=== PATIENT | female | born 1955 | race Caucasian/White ===

== ENCOUNTER 2019-11-30 10:06 | Emergency (ER) | payer MEDICARE, MEDICAID, SELFPAY ==
[2019-11-30 10:07] VITALS: BP 135/87; PULSE 76; RESP 20; TEMP 36.8; O2SAT 96; BMI 42.9
--- NOTE | 2019-11-30 10:16 | ED_ITS ---
Entered by Rajesh Donnelly LPN, acting as scribe for Alok Brown MD HPI - General Adult General: Chief complaint: General Medical Stated complaint: HEADACHE Time Seen by Provider: 11/30/19 10:16 Source: patient Mode of arrival: EMS Limitations: no limitations History of Present Illness: HPI narrative: 63 yo female presents c/o headache that started gradually 4 days ago, intermittent, initially thought it was her neck, going up the back of her head, now her left ear is hurting and she has pain behind her eyes. Most of the pain is present on the left side of the head. Certain movements worsen the pain. She has had headaches on this side before, this is worse than her normal headache today. She denies any abnormal movements. Denies syncope. Pt is not on anticoagulant. She denies h/o stroke or brain injury. She also mentions for the past 2 months she has been ill for several days at a time intermittently, described as nauseated, unable to vomit. She hasn't been eating much to be able to vomit. For the past 5 days she has had intermittent chills and sweats, hasn't noted this to be associated with her headache. Also reporting some dizziness, described as the room spinning, chronic for her. complaint: headache Onset (ago): day(s) (onset 4 days ago. ) Location: head and left Severity: moderate Pain Consistency: intermittent Exacerbating factors: movement Associated symptoms: Reports diaphoresis, headache(s) and nausea; Deny chest pain, confusion, dyspnea, rash or vomiting Review of Systems Const: Reports: chills, fatigue and diaphoresis; Denies: fever or night sweats Eyes: Denies: change in vision or blurry vision ENMT: Denies: throat pain Card: Denies: chest pain Resp: Denies: shortness of breath or productive cough GI: Reports: nausea; Denies: abdominal pain, vomiting, constipation or change in bowel habits : Denies: painful urination Musc: Reports: neck pain; Denies: extremity pain or joint pain Skin/Breast: Denies: rash Neuro: Reports: headache and dizziness; Denies: difficulty walking or confusion Psych: Denies: suicidal ideation or homicidal ideation PFSH ED PFSH: Statuses (acute, chronic, etc) shown below reflect problem list status as previously entered and may not be historically accurate Social History Smoking and tobacco status: never smoked Physical Exam Const: COMMON NORMALS: no apparent distress, oriented x3, no limitations and alert EXAM LIMITATIONS: no altered mental status GENERAL APPEARANCE: cooperative, comfortable and well developed; not in distress, not anxious and not lethargic ORIENTATION/CONSCIOUSNESS: Yes awake, Yes oriented to person, Yes oriented to place and Yes oriented to time; not lethargic HENMT: COMMON NORMALS: normocephalic, head/scalp atraumatic, external ears normal, TM's normal bilaterally and external nose normal HEAD & SCALP: normocephalic and atraumatic FACE & SINUS: normal facial exam NOSE: external nose normal EXTERNAL EAR: Yes external ears normal TYMPANIC MEMBRANE: TM's normal bilaterally Eye: COMMON NORMALS: PERRL, EOMs intact bilaterally, conjunctivae normal and no scleral icterus CONJUNCTIVA: Yes conjunctivae normal PUPIL: Yes PERRL Neck/C-Spine: COMMON NORMALS: full ROM and no meningeal signs GENERAL: Yes normal visual inspection Chest: COMMONS NORMALS: inspection of chest normal and palpation of chest normal Resp: COMMON NORMALS: normal respiratory effort, no retractions, no use of accessory muscles and clear to auscultation bilaterally EFFORT & INSPECTION: Yes able to speak in complete sentences AUSCULTATION: clear to auscultation bilaterally Cardio: COMMON NORMALS: regular rate, regular rhythm, no murmurs and peripheral pulses 2+ throughout RATE: regular rate RHYTHM: regular rhythm PERIPHERAL PULSES: pulses 2+ throughout, radial pulses present and posterior tibial pulses present GI: COMMON NORMALS: normal to inspection, nondistended, normoactive bowel sounds, soft to palpation, non-tender, no hepatosplenomegaly, no masses and no bruits PALPATION: Yes soft and Yes no hepatosplenomegaly Back/Pelvis: OTHER: palpable pain along SCM and Trapezius- no rash at this area Extremity: COMMON NORMALS: normal to inspection, full ROM, normal capillary refill, no joint enlargement and no clubbing, cyanosis or edema Neuro: COMMON NORMALS: oriented x3, CN's II-XII intact bilaterally, moves all extremities, no focal motor deficits and no sensory deficits noted SENSORIUM/ORIENTATION: Yes alert, Yes oriented to person, Yes oriented to place, Yes oriented to time and No lethargic MENINGEAL SIGNS: Yes no meningeal signs SPEECH: speech normal MOTOR EXAM: no movement abnormalities noted Psych: COMMON NORMALS: mental status grossly normal, thought process normal, cooperative, affect normal, speech normal and activity/motor behavior normal SPEECH: Yes normal speech THOUGHT PROCESS: normal thought process Skin: COMMON NORMALS: no rashes or lesions noted and skin turgor normal GENERAL SKIN EXAM: no rashes or lesions noted, elasticity normal and turgor normal Procedures Nerve Block Nerve Block 1: Local Anesthetic: lidocaine 1% Amount of anesthesia used (mL): 4 Side: left and right Nerve Blocks: occipital Procedure Successful: Yes Patient Tolerated Procedure: well Complications: none Course ED course: 102 Counseled pt she has muscle spasm and tightness in the trapezius, tender to palpation during exam, this is likely causing her headache. Explained as her other symptoms have been chronic for months I advise she discuss them with her PCP, including the chronic nausea, dizziness, she is likely experiencing Vertigo, and being fatigued, not getting out of bed much for a couple months. Counseled per my exam I don't feel she needs CT at this time, no neuro deficits noted. Discussed treatment with muscle relaxer and antiinflamatory IM, Occipital nerve block, pt agrees to use all of thAgree with above from scribe. Patient has 4 days of headache. It is not sudden onset it is not the worst headache of her life, he is gradual onset waxing and waning. Pain is easily palpable and reproducible by palpating the occipital nerve distribution and trapezius. Likely muscle spasms from laying in bed have triggered some neuralgias and migraine as well. Do not have high suspicion for serious etiology of headache.. Will attempt to relax migraine with anti- inflammatory and a dopaminergic. Will do a occipital nerve block as well. We will also give her a small dose of muscle relaxers Reevaluation(s): Reevaluation #1: Patient symptoms have largely resolved. She does feel some tenderness in the back of her head where the lidocaine was injected. Reexamined patient she has no abnormal exam in regards to nystagmus and saccedes. Patient is neurologically intact pain in her neck head and shoulder is easily reproducible. She does have some mild vertigo but again this is chronic for her and I am satisfied based upon history and exam that this is peripheral rather than central. Patient symptoms seem to be of benign etiology. I did discuss with her that the 2 months of nausea that is intermittent with her needs to be evaluated but this can be done with her primary care physician so strongly suggested that she follow-up with them soon as possible. We will discharge her with some meclizine and Zofran. 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
[2019-11-30] MEDS: diphenhydrAMINE 25 mg Capsule PO (10:52)
[2019-11-30] MEDS: lidocaine 1% INJ 20 mL INJECTION (10:52)
[2019-11-30] MEDS: promethazine 25 mg/mL SDV 1 mL IM (10:52)
[2019-11-30] MEDS: ketorolac 30 mg/mL INJ 10 MG IVP (10:53)
[2019-11-30] MEDS: meclizine 25 mg tablet PO (10:57)
[2019-11-30 11:00] VITALS: BP 135/81; PULSE 67; O2SAT 97
[2019-11-30] MEDS: orphenadrine 30 mg/mL Inj 2 mL 60 MG IM (11:42)
--- NOTE | 2019-11-30 12:07 | PC.NURSE ---
Ok sandoval called for patient per her request, reference number [id number].
[2019-11-30 12:08] VITALS: BP 142/78; PULSE 68; RESP 17; O2SAT 100
== END 2019-11-30 12:10 | disposition home or self-care (01) ==
PROVIDERS: Emergency Provider Family Medicine; Family Provider Internal Medicine; PCP Internal Medicine
DX: R51 Headache (principal)
CPT/HCPCS: 64450; 96372; 96374; 99281; J1885; J2001; J2360; J2550; J8597

== ENCOUNTER → 2019-12-11 09:51 | Outpatient (BNVA) | payer MEDICARE, MEDICAID, SELFPAY | PROVIDERS: Family Provider Internal Medicine; PCP Internal Medicine; Referring Provider Internal Medicine; Visit Provider Internal Medicine Rheumatology | DX: M05.79 Rheumatoid arthritis with rheumatoid factor of multiple sites without organ or systems involvement (principal); Z79.52 Long term (current) use of systemic steroids; Z22.322 Carrier or suspected carrier of Methicillin resistant Staphylococcus aureus; M25.511 Pain in right shoulder; M25.512 Pain in left shoulder; G89.29 Other chronic pain | CPT/HCPCS: 99213 ==

== ENCOUNTER → 2020-09-01 10:30 | Outpatient (BNVA) | payer MEDICARE, MEDICAID, SELFPAY | PROVIDERS: Family Provider Internal Medicine; PCP Internal Medicine; Visit Provider Internal Medicine | DX: M05.79 Rheumatoid arthritis with rheumatoid factor of multiple sites without organ or systems involvement (principal); Z22.322 Carrier or suspected carrier of Methicillin resistant Staphylococcus aureus; Z79.52 Long term (current) use of systemic steroids; Z79.899 Other long term (current) drug therapy | CPT/HCPCS: 36415; 80053; 85025; 86140; 99214 ==

== ENCOUNTER 2020-09-22 14:40 | Outpatient (CLI) | payer MEDICARE, MEDICAID, SELFPAY ==
--- NOTE | 2020-09-22 | XR_ITS ---
WS: [id number] Bone mineral density performed on a [employer], 09/22/2020 Clinical data: POST MENOPAUSAL Findings: The first 4 lumbar vertebral bodies demonstrated the bone mineral density of 1.308 g/cm2 for a young adult T score of 1.1. Measurement of the left radius reveals the bone mineral density of 0.810 g/sq cm with a young adult T score of -0.8 XR/XR DEXA axial skeleton* [id number] Impression: Normal bone mineral density of the lumbar spine and left radius.
== END 2020-09-22 14:41 | disposition home or self-care (01) ==
LOC: RADWPI 14:47
PROVIDERS: PCP Internal Medicine; Visit Provider Nurse Practitioner Family
DX: Z78.0 Asymptomatic menopausal state (principal)
CPT/HCPCS: 77080

== ENCOUNTER → 2021-05-12 13:52 | Outpatient (BNVA) | payer MEDICARE, MEDICAID, SELFPAY | PROVIDERS: PCP Internal Medicine; Visit Provider Internal Medicine | DX: M05.79 Rheumatoid arthritis with rheumatoid factor of multiple sites without organ or systems involvement (principal); Z79.52 Long term (current) use of systemic steroids; Z79.899 Other long term (current) drug therapy | CPT/HCPCS: 99213 ==

== ENCOUNTER 2021-10-17 00:53 | Emergency (ER) | payer MEDICARE, MEDICAID, SELFPAY ==
[2021-10-17 01:04] VITALS: BP 167/115; PULSE 73; RESP 20; TEMP 36.3; O2SAT 94; BMI 43.7
--- NOTE | 2021-10-17 01:05 | W.ED.LOWEXIN ---
HPI - Extremity Injury (Lower) General: Chief Complaint: Wound/Laceration Stated Complaint: Lt Leg Injury Time Seen by Provider: 10/17/21 01:05 History of Present Illness: HPI Narrative: 65-year-old female comes in today with injury to the left lower leg. 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 Patient also has rheumatoid arthritis, takes prednisone chronically, denies diabetes. Patient reports that her dog hit her walker which caused her to strike her leg Review of Systems General: Reports: 10 or more systems reviewed and unremarkable except in HPI and below Skin/Breast: Reports: other (skin tear) [facility] ED PFSH: Medical History (Updated 10/17/21 @ 02:03 by AIDAN Starr) Sleep apnea Surgical History (Updated 05/06/20 @ 22:50 by Mikayla Cloud MD) H/O amputation RIGHT LEG 12/07 Social History Smoking and tobacco status: never smoked Alcohol intake: never Marital status: History of recent travel: No Physical Exam Const: COMMON NORMALS: no acute distress and patient oriented x3 GENERAL APPEARANCE: cooperative HENMT: COMMON NORMALS: normocephalic and Normal external nose present HEAD & SCALP: normal to inspection and normocephalic NOSE: Normal external nose present MOUTH: Normal oral and palatal mucosa present Eye: GENERAL EYE: appearance normal, both eyes and all related structures Neck/C-Spine: COMMON NORMALS: full ROM Chest: COMMONS NORMALS: normal inspection of the chest Resp: COMMON NORMALS: normal respiratory effort EFFORT & INSPECTION: Yes able to speak in complete sentences Cardio: COMMON NORMALS: regular rate and regular rhythm RATE: regular rate RHYTHM: regular rhythm GI: COMMON NORMALS: non-tender Back/Pelvis: COMMON NORMALS: thoracic and lumbar spine normal to inspection Extremity: COMMON NORMALS: normal to inspection Neuro: COMMON NORMALS: patient oriented x3 and moves all extremities Psych: COMMON NORMALS: mental status grossly normal and cooperative Skin: NARRATIVE SKIN EXAM: 4 cm v-shape skin tear left anterior lower leg Procedures Laceration Laceration 1: Site: lower extremity Side (If applicable): left Size (cm): 6 Description: flap Local Anesthetic: lidocaine 1% Amount of anesthesia used (mL): 8 Pre-repair: wound explored and irrigated extensively Skin layer closed with: nylon Size (cm): 4-0 Number of sutures: 10 Technique: horizontal mattress Course Vital Signs: Vital signs: Vital Signs Temperature 97.4 F L 10/17/21 01:04 Pulse Rate 73 10/17/21 01:04 Respiratory Rate 20 H 10/17/21 01:04 Blood Pressure 167/115 10/17/21 01:04 Pulse Oximetry 94 10/17/21 01:04 MDM - Extremity Injury (Lower) MDM Narrative: Medical decision making narrative: Patient presents with injury to the left lower leg. Patient has a 8 cm V-shaped laceration to the left lower leg. There is no adhesion of the skin tissue and fat that is visible. Differential diagnosis includes laceration, need for prophylaxis tetanus, need for prophylaxis antibiotic, foreign body. No foreign body was noted in the wound. Wound was cleaned with Betadine and saline. Wound was closed with 10 mattress sutures to approximate the edges of the wound. Patient's post procedure care was to keep wound dressing intact until follow-up with primary care in 3 days. At that time primary care can evaluate the wound and decide if wound care specialty needs to be consulted for further treatment. Patient does have high risk due to her use of prednisone and rheumatoid arthritis. 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 Patient agreed to plan. We will start patient on some Bactrim 1 tablet twice a day for 7 days, and mupirocin ointment for further treatment and protection of wound. Discharge Plan Discharge Patient Disposition: Home Clinical Impression: Laceration Condition: Stable Prescriptions: New Bactrim DS 800-160 mg tablet 1 tab PO BID 7 Days Qty: 14 RF: 0 mupirocin 2 % ointment 1 applic topical DAILY Qty: 22 RF: 0 No Action atorvastatin 10 mg tablet 10 mg PO QDAY RF: 0 tramadol-acetaminophen [Ultracet] 37.5-325 mg tablet 1 tab PO BID PRNRF: 0 fluticasone propionate 50 mcg/actuation spray,suspension 1 spray INTRANASAL QDAY RF: 0 aspirin [Adult Aspirin Regimen] 81 mg tablet,delayed release (DR/EC) 81 mg PO QDAY RF: 0 gabapentin 600 mg tablet 600 mg PO TID RF: 0 pantoprazole 40 mg tablet,delayed release (DR/EC) 40 mg PO QDAY RF: 0 cetirizine [Allergy Relief (cetirizine)] 10 mg tablet 5 mg PO DAILY PRNRF: 0 diphenhydramine HCl [Benadryl] 25 mg capsule 25 mg PO TID PRNRF: 0 prednisone 5 mg tablet 5 mg PO QDAY Qty: 30 RF: 1 zinc 50 mg tablet 50 mg PO DAILY Qty: 30 RF: 0 cholecalciferol (vitamin D3) 1,250 mcg (50,000 unit) capsule 50,000 unit PO .qweek Qty: 14 RF: 0 lysine [L-Lysine] 500 mg tablet 500 mg PO DAILY Qty: 30 RF: 3 omeprazole 20 mg capsule,delayed release(DR/EC) 20 mg PO DAILY RF: 0 diclofenac sodium [Voltaren] 1 % gel 2 g topical QID Qty: 100 RF: 2 hydroxychloroquine 200 mg tablet 200 mg PO BID Qty: 60 RF: 1 meclizine 25 mg tablet 12.5 mg PO DAILY PRN (Reason: dizziness) Qty: 14 RF: 0 Discharge Orders: Discharge ED (Routine); Ordered 10/17/21 Ordered By: Jameson Singh Referrals: Kendrick Lott DO [Primary Care Provider] - Discharge Diet: Usual diet Discharge Activity: Increase activity as tolerated Patient Instructions: Laceration (ED), Opioid Safety Activity Restrictions/Additional Instructions: Keep wound clean and dry. You may leave initial dressing in place until you follow-up with primary care in 3 days. If the dressing becomes wet or really dirty you should change it. Take Bactrim 1 tablet twice a day for the next 7 days. Use mupirocin ointment to the wound when changing dressing. Follow-up with primary care in 3 days. At that time he may need to refer you to wound care for further treatment. Return to the ER for new concerns such as high fever greater than 100.5 or new issues. 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
[2021-10-17] MEDS: lidocaine 1% INJ 20 mL INJECTION (01:32)
[2021-10-17] MEDS: tetanus-dipt-pertussis 0.5 mL SDV IM (01:32)
[2021-10-17] MEDS: sulfamethoxazole-trimeth DS 160-800 mg Tablet 1 TAB PO (02:08)
== END 2021-10-17 02:18 | disposition home or self-care (01) ==
PROVIDERS: Emergency Provider Nurse Practitioner Family; PCP Internal Medicine
DX: S81.812A Laceration without foreign body, left lower leg, initial encounter (principal); W54.1XXA Struck by dog, initial encounter; Z79.82 Long term (current) use of aspirin; Z79.891 Long term (current) use of opiate analgesic; Z89.9 Acquired absence of limb, unspecified
CPT/HCPCS: 12002; 90471; 90715; 99283

== ENCOUNTER 2021-10-27 13:16 | Outpatient (CLI) | payer MEDICARE, MEDICAID, SELFPAY | END 2021-10-27 13:17 | disposition home or self-care (01) | LOC: WOUND 13:17 | PROVIDERS: PCP Internal Medicine; Visit Provider Emergency Medicine | DX: Z09 Encounter for follow-up examination after completed treatment for conditions other than malignant neoplasm (principal); I10 Essential (primary) hypertension; M06.9 Rheumatoid arthritis, unspecified | CPT/HCPCS: A6219; G0463 ==

== ENCOUNTER → 2021-11-23 14:45 | Outpatient (BNVA) | payer MEDICARE, MEDICAID, SELFPAY | PROVIDERS: PCP Internal Medicine; Visit Provider Internal Medicine | DX: M05.79 Rheumatoid arthritis with rheumatoid factor of multiple sites without organ or systems involvement (principal); Z79.52 Long term (current) use of systemic steroids; Z79.899 Other long term (current) drug therapy; R76.8 Other specified abnormal immunological findings in serum; S81.802A Unspecified open wound, left lower leg, initial encounter | CPT/HCPCS: 99214 ==

== ENCOUNTER 2021-11-25 08:33 | Outpatient (CLI) | payer MEDICARE, MEDICAID, SELFPAY | END 2021-11-25 08:34 | disposition home or self-care (01) | PROVIDERS: PCP Internal Medicine; Visit Provider Surgery | DX: I96 Gangrene, not elsewhere classified (principal); S81.822A Laceration with foreign body, left lower leg, initial encounter; X58.XXXA Exposure to other specified factors, initial encounter; M06.9 Rheumatoid arthritis, unspecified; I10 Essential (primary) hypertension | CPT/HCPCS: 11042; 87070 ==

== ENCOUNTER 2021-11-28 12:52 | Outpatient (CLI) | payer MEDICARE, MEDICAID, SELFPAY ==
--- NOTE | 2021-11-28 13:00 | XR_ITS ---
WS: [id number] XR tibia fibula LT 2V [id number] REASON FOR EXAM: LLE ULCER FINDINGS: Severe changes of osteoarthritis in the left knee joint and left ankle. No fracture or focal bone abnormality. No bony destruction or periosteal reaction. Lucencies in the soft tissues overlying the distal left fibula which may relate to the soft tissue ul cer indicated by history. XR/XR tibia fibula LT 2V [id number] IMPRESSION: No evidence of osteomyelitis.
== END 2021-11-28 12:53 | disposition home or self-care (01) ==
LOC: RAD 12:54
PROVIDERS: PCP Internal Medicine; Visit Provider Surgery
DX: L97.822 Non-pressure chronic ulcer of other part of left lower leg with fat layer exposed (principal)
CPT/HCPCS: 73590

== ENCOUNTER 2021-12-02 14:46 | Outpatient (CLI) | payer MEDICARE, MEDICAID, SELFPAY | END 2021-12-02 14:47 | disposition home or self-care (01) | LOC: WOUND 14:47 | PROVIDERS: PCP Internal Medicine; Visit Provider Surgery | DX: I96 Gangrene, not elsewhere classified (principal); S81.802A Unspecified open wound, left lower leg, initial encounter; X58.XXXA Exposure to other specified factors, initial encounter; M06.9 Rheumatoid arthritis, unspecified | CPT/HCPCS: 11042 ==

== ENCOUNTER 2021-12-09 09:29 | Outpatient (CLI) | payer MEDICARE, MEDICAID, SELFPAY | END 2021-12-09 09:30 | disposition home or self-care (01) | LOC: WOUND 09:30 | PROVIDERS: PCP Internal Medicine; Visit Provider Nurse Practitioner Family | DX: I96 Gangrene, not elsewhere classified (principal); S81.822A Laceration with foreign body, left lower leg, initial encounter; X58.XXXA Exposure to other specified factors, initial encounter; I10 Essential (primary) hypertension; M06.9 Rheumatoid arthritis, unspecified | CPT/HCPCS: 11042 ==

== ENCOUNTER 2021-12-16 13:51 | Outpatient (CLI) | payer MEDICARE, MEDICAID, SELFPAY | END 2021-12-16 13:52 | disposition home or self-care (01) | LOC: WOUND 13:52 | PROVIDERS: PCP Internal Medicine; Visit Provider Surgery | DX: S81.822A Laceration with foreign body, left lower leg, initial encounter (principal); X58.XXXA Exposure to other specified factors, initial encounter; I10 Essential (primary) hypertension; M06.9 Rheumatoid arthritis, unspecified | CPT/HCPCS: 11042 ==

== ENCOUNTER 2021-12-30 13:30 | Outpatient (CLI) | payer MEDICARE, MEDICAID, SELFPAY | END 2021-12-30 13:31 | disposition home or self-care (01) | LOC: WOUND 13:31 | PROVIDERS: PCP Internal Medicine; Visit Provider Surgery | DX: I96 Gangrene, not elsewhere classified (principal); L97.822 Non-pressure chronic ulcer of other part of left lower leg with fat layer exposed | CPT/HCPCS: 11042; A6250 ==

== ENCOUNTER 2022-01-06 10:59 | Outpatient (CLI) | payer MEDICARE, MEDICAID, SELFPAY | END 2022-01-06 11:00 | disposition home or self-care (01) | LOC: WOUND 11:00 | PROVIDERS: PCP Internal Medicine; Visit Provider Thoracic Surgery (Cardiothoracic Vascular Surgery) | DX: I96 Gangrene, not elsewhere classified (principal); L97.822 Non-pressure chronic ulcer of other part of left lower leg with fat layer exposed | CPT/HCPCS: 99213 ==

== ENCOUNTER 2022-01-20 13:05 | Outpatient (CLI) | payer MEDICARE, MEDICAID, SELFPAY | END 2022-01-20 13:06 | disposition home or self-care (01) | LOC: WOUND 13:06 | PROVIDERS: PCP Internal Medicine; Visit Provider Nurse Practitioner Family | DX: I96 Gangrene, not elsewhere classified (principal); L97.822 Non-pressure chronic ulcer of other part of left lower leg with fat layer exposed | CPT/HCPCS: 11042 ==

== ENCOUNTER 2022-02-03 15:17 | Outpatient (CLI) | payer MEDICARE, MEDICAID, SELFPAY | END 2022-02-03 15:18 | disposition home or self-care (01) | LOC: WOUND 15:19 | PROVIDERS: PCP Internal Medicine; Visit Provider Surgery | DX: L97.822 Non-pressure chronic ulcer of other part of left lower leg with fat layer exposed (principal) | CPT/HCPCS: 11042 ==

== ENCOUNTER → 2022-02-10 13:40 | Outpatient (BNVA) | payer MEDICARE, MEDICAID, SELFPAY | PROVIDERS: PCP Internal Medicine; Visit Provider Surgery | DX: L97.822 Non-pressure chronic ulcer of other part of left lower leg with fat layer exposed (principal); I96 Gangrene, not elsewhere classified | CPT/HCPCS: 11042 ==

== ENCOUNTER → 2022-02-17 13:59 | Outpatient (BNVA) | payer MEDICARE, MEDICAID, SELFPAY | PROVIDERS: PCP Internal Medicine; Visit Provider Surgery | DX: I96 Gangrene, not elsewhere classified (principal); L97.822 Non-pressure chronic ulcer of other part of left lower leg with fat layer exposed | CPT/HCPCS: 11042 ==

== ENCOUNTER → 2022-02-22 10:28 | Outpatient (BNVA) | payer MEDICARE, MEDICAID, SELFPAY | PROVIDERS: PCP Internal Medicine; Visit Provider Internal Medicine | DX: M05.79 Rheumatoid arthritis with rheumatoid factor of multiple sites without organ or systems involvement (principal); R76.8 Other specified abnormal immunological findings in serum; S81.802A Unspecified open wound, left lower leg, initial encounter; Z89.511 Acquired absence of right leg below knee; X58.XXXA Exposure to other specified factors, initial encounter | CPT/HCPCS: 80053; 82784; 85025; 85651; 86140; 99214 ==

== ENCOUNTER 2022-02-22 11:47 | Outpatient (CLI) | payer MEDICARE, MEDICAID, SELFPAY ==
[2022-02-22 12:06] LABS: Basophils # 0.1 10^3/uL (0.0-0.1); Basophils % 1.2 %; Eosinophils % 0.5 %; Hematocrit 38.6 % (37.0-47.0); Hemoglobin 12.6 g/dL (11.5-15.3); Lymphocytes # 1.1 10^3/uL (0.8-4.8); Lymphocytes % 25.7 %; Mean Corpuscular HGB Conc 32.6 g/dL (30.0-36.0); Mean Corpuscular Hemoglobin 29.7 pg (28.0-34.0); Mean Platelet Volume 9.7 fL (7.4-10.4); Monocytes # 0.5 10^3/uL (0.2-0.9); Monocytes % 12.4 %; Neutrophils # 2.57 10^3/uL (1.8-7.7); Nucleated Red Blood Cells % 0 %; Platelet Count 264 10^3/cmm (130-400); Red Blood Count 4.24 10^6/uL (4.1-5.3); Red Cell Distribution Width 13.1 % (12.1-15.1); White Blood Count 4.3 10^3/uL (4.0-10.0)
[2022-02-22 12:11] LABS: Erythrocyte Sedimentation Rate 6 mm/hr (0-15)
[2022-02-22 12:34] LABS: Alanine Aminotransferase 12 U/L (0-33); Albumin Level 4.2 g/dL (3.5-5.2); Alkaline Phosphatase 81 IU/L (35-105); Aspartate Amino Transferase 21 U/L (0-32); Blood Urea Nitrogen 17 mg/dL (8-23); C Reactive Protein 4.9 mg/L (0.0-4.9); Calcium 9.6 mg/dL (8.5-10.5); Carbon Dioxide 26 mmol/L (22-29); Chloride 97 mmol/L (98-107); Globulin 2.5 g/dL (1.3-4.6); Glomerular Filtration Rate 62.3 mL/min (90-130); Glucose 99 mg/dL (65-115); Immunoglobulin IGA 188 mg/dL (70-400); Immunoglobulin IGG 1192 mg/dL (700-1600); Immunoglobulin IGM 74 mg/dL (40-230); Osmolality Calculated 278 mOsm/kg (285-295); Sodium 133 mmol/L (136-145); Total Bilirubin 0.5 mg/dL (0.15-1.2); Total Protein 6.7 g/dL (6.6-8.7)
[2022-02-22 12:37] LABS: Anion Gap 14.1 (5-19); Potassium 4.1 mmol/L (3.5-5.1)
== END 2022-02-22 11:48 | disposition home or self-care (01) ==
LOC: LAB 11:51
PROVIDERS: PCP Internal Medicine; Visit Provider Internal Medicine
DX: R76.8 Other specified abnormal immunological findings in serum (principal); S81.802A Unspecified open wound, left lower leg, initial encounter; X58.XXXA Exposure to other specified factors, initial encounter
CPT/HCPCS: 80053; 82784; 85025; 85651; 86140

== ENCOUNTER → 2022-02-24 13:53 | Outpatient (BNVA) | payer MEDICARE, MEDICAID, SELFPAY | PROVIDERS: PCP Internal Medicine; Visit Provider Surgery | DX: I96 Gangrene, not elsewhere classified (principal); L97.822 Non-pressure chronic ulcer of other part of left lower leg with fat layer exposed | CPT/HCPCS: 11042 ==

== ENCOUNTER → 2022-03-10 09:43 | Outpatient (BNVA) | payer MEDICARE, MEDICAID, SELFPAY | PROVIDERS: PCP Internal Medicine; Visit Provider Surgery | DX: I96 Gangrene, not elsewhere classified (principal); L97.822 Non-pressure chronic ulcer of other part of left lower leg with fat layer exposed | CPT/HCPCS: 11042 ==

== ENCOUNTER → 2022-03-17 11:00 | Outpatient (BNVA) | payer MEDICARE, MEDICAID, SELFPAY | PROVIDERS: PCP Internal Medicine; Visit Provider Nurse Practitioner Family | DX: I96 Gangrene, not elsewhere classified (principal); L97.822 Non-pressure chronic ulcer of other part of left lower leg with fat layer exposed | CPT/HCPCS: 11042 ==

== ENCOUNTER → 2022-03-24 10:32 | Outpatient (BNVA) | payer MEDICARE, MEDICAID, SELFPAY | PROVIDERS: PCP Internal Medicine; Visit Provider Surgery | DX: L97.822 Non-pressure chronic ulcer of other part of left lower leg with fat layer exposed (principal); I96 Gangrene, not elsewhere classified | CPT/HCPCS: 99212 ==

== ENCOUNTER → 2022-08-01 11:52 | Outpatient (BNVA) | payer MEDICARE, MEDICAID, SELFPAY | PROVIDERS: PCP Internal Medicine; Visit Provider Internal Medicine | DX: M05.79 Rheumatoid arthritis with rheumatoid factor of multiple sites without organ or systems involvement (principal); Z22.322 Carrier or suspected carrier of Methicillin resistant Staphylococcus aureus | CPT/HCPCS: 99213; 99214 ==

== ENCOUNTER 2022-09-28 14:45 | Outpatient (CLI) | payer MEDICARE, MEDICAID, SELFPAY ==
--- NOTE | 2022-09-28 14:54 | XR_ITS ---
WS: [id number] DEXA (DUAL ENERGY X-RAY ABSORPTIOMETRY) Bone mineral density was performed using a [employer] machine. HISTORY: POSTMENOPAUSAL COMPARISON: 09/22/2020 Lumbar spine BMD (L1-L4): 1.329 g/cm2 T score: 1.2 Z score: 1.7 Left forearm BMD: 0.785 g/cm2. T score: -1.0 Z score: 0.7 RIGHT forearm BMD: 0.900 g/cm2. T score: 0.3 Z score: 2.0 Compared to the prior study from 09/22/2020. Lumbar spine bone mineral density has increased by 1.6%. LEFT forearm bone mineral density has decreased by 3.1%. RIGHT forearm bone mineral density has increased by 14.8%. XR/XR DEXA axial skeleton* [id number] IMPRESSION: NORMAL BONE MINERAL DENSITY based upon the WHO classification for females. Sign ificant increase in bone mineral density within the forearm since the prior rhonda dy.
--- NOTE | 2022-09-28 14:58 | MM_ITS ---
WS: [id number] BILATERAL 3D TOMOSYNTHESIS DIGITAL SCREENING MAMMOGRAPHY WITH CAD CLINICAL INFORMATION: SCREENING HISTORY: Screening mammogram. No current complaints. COMPARISON: 2015 TECHNIQUE: Bilateral CC and MLO views. FINDINGS: Scattered fibroglandular densities bilaterally. No suspicious focal mass, asymmetry, calcifications, or architectural distortion. No evidence of malignancy. Punctate and lucent centered calcifications. MM/[place] [id number] IMPRESSION: BI-RADS: 2-Benign FOLLOW UP: 1 Year Follow-up Recommend return to annual screening mammography.
== END 2022-09-28 14:46 | disposition home or self-care (01) ==
PROVIDERS: PCP Internal Medicine; Visit Provider Nurse Practitioner Family
DX: Z12.31 Encounter for screening mammogram for malignant neoplasm of breast (principal); Z78.0 Asymptomatic menopausal state
CPT/HCPCS: 77063; 77067; 77080

== ENCOUNTER → 2023-02-07 13:53 | Outpatient (BNVA) | payer MEDICARE, MEDICAID, SELFPAY | PROVIDERS: PCP Internal Medicine; Visit Provider Internal Medicine | DX: M05.79 Rheumatoid arthritis with rheumatoid factor of multiple sites without organ or systems involvement (principal); Z22.322 Carrier or suspected carrier of Methicillin resistant Staphylococcus aureus | CPT/HCPCS: 99213 ==

== ENCOUNTER 2023-10-15 18:14 | Emergency (ER) | payer MEDICARE, MEDICAID, SELFPAY ==
[2023-10-15 18:40] VITALS: BP 160/74; PULSE 69; RESP 16; TEMP 36.7; O2SAT 99; BMI 42.9
--- NOTE | 2023-10-15 19:13 | USR_ITS ---
PROCEDURE INFORMATION: Exam: US Duplex Left Lower Extremity Veins, Limited Exam date and time: 10/15/2023 8:02 PM Age: 67 years old Clinical indication: Edema, localized; Lower extremity, left; Patient HX: Chronic lle edema, worse last 2-3 weeks. No history of dvt. ; Additional info: Leg swelling TECHNIQUE: Imaging protocol: Real-time duplex ultrasound of the left extremity with 2-D fuentes scale, color Doppler flow and spectral waveform analysis including responses to compression and other maneuvers (when performed) with image documentation. Limited exam focused on the left lower extremity veins. COMPARISON: US soft tissue/extremity [id number] 08/28/2018 7:23 AM FINDINGS: Left deep veins: Unremarkable. The common femoral, femoral, proximal profunda femoral and popliteal veins are patent without thrombus. Normal Doppler waveforms. Normal compressibility and/or augmentation response. Superficial veins: Unremarkable. Saphenofemoral junction is patent without thrombus. Soft tissues: Unremarkable. Other findings: Posterior tibial vein also patent. US/CV venous duplex [facility] [id number] IMPRESSION: No evidence of deep vein thrombosis.
--- NOTE | 2023-10-15 19:29 | W.ED.EXTPRO ---
HPI - Extremity Problem General: Chief complaint: Extremity Problem,Nontraumatic Stated complaint: leg pain swelling Time Seen by Provider: 10/15/23 18:33 Source: patient Mode of arrival: ambulatory Limitations: no limitations History of Present Illness: 67-year-old female states she has noticed some swelling to her left lower leg over the last week. States she felt like it is slightly warm to touch and seeing her PCP she has been on antibiotics 5 days but she is concerned she may have a DVT and wants to have that ruled out. Has slight pain denies any injuries. 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/07 Social History Smoking and tobacco/nicotine status: never used tobacco/nicotine Alcohol intake: former Substance/Drug Use: never Marital status: Physical Exam Const: COMMON NORMALS: patient oriented x3 HENMT: COMMON NORMALS: normocephalic and atraumatic HEAD & SCALP: normocephalic and atraumatic Neck/C-Spine: COMMON NORMALS: full ROM and supple Chest: COMMONS NORMALS: normal inspection of the chest Resp: COMMON NORMALS: normal respiratory effort Cardio: COMMON NORMALS: regular rate, regular rhythm and No murmurs present (Cardio) RATE: regular rate RHYTHM: regular rhythm Extremity: NARRATIVE EXTREMITY EXAM: Slight swelling noted to the left lower leg minimal tenderness no warmth or signs of severe cellulitis Neuro: COMMON NORMALS: patient oriented x3, moves all extremities and no focal motor deficits Psych: COMMON NORMALS: mental status grossly normal, Normal thought process present and cooperative THOUGHT PROCESS: Normal thought process present Skin: COMMON NORMALS: no rashes or lesions noted and no wounds GENERAL SKIN EXAM: no rashes or lesions noted Course Vital Signs: Vital signs: Vital Signs Temperature 98.1 F 10/15/23 18:40 Pulse Rate 72 10/15/23 20:57 Respiratory Rate 18 10/15/23 20:57 Blood Pressure 138/75 10/15/23 20:57 Pulse Oximetry 97 10/15/23 20:57 Oxygen Delivery Me thod Room Air 10/15/23 18:40 MDM - Extremity (Nontraumatic) Medical Decision Making Patient presents here with left leg swelling minimal erythema here she is on Bactrim we will add Keflex blood work here is normal ultrasound shows no DVT she has no signs of abscess she is follow-up with PCP and return if worsening. Medical Records I reviewed the patient's medical records. Lab Data I reviewed the patient's lab results. 10/15/23 19:35 10/15/23 19:35 Radiology Impressions Venous Duplex 10/15/23 19:13 IMPRESSION: No evidence of deep vein thrombosis. Laboratory Results WBC 4.80 10^3/uL (3.29-11.43) 10/15/23 19:35 RBC 4.22 10^6/uL (3.85-5.65) 10/15/23 19:35 Hgb 12.60 g/dL (11.27-16.99) 10/15/23 19:35 Hct 39.9 % (36-47) 10/15/23 19:35 MCV 94.5 fl (85-98) 10/15/23 19:35 MCH 29.9 pg (27-33) 10/15/23 19:35 MCHC 31.6 g/dL (30-55) 10/15/23 19:35 RDW 14.6 % (12.1-15.1) 10/15/23 19:35 Plt Count 234 10^3/cmm (157-399) 10/15/23 19:35 MPV 9.2 fL (7.4-10.4) 10/15/23 19:35 Neut % (Auto) 62.9 % 10/15/23 19:35 Lymph % (Auto) 23.8 % 10/15/23 19:35 [place] % (Auto) 11.3 % 10/15/23 19:35 Eos % (Auto) 0.6 % 10/15/23 19:35 Baso % (Auto) 1.0 % 10/15/23 19:35 Neut # (Auto) 3.02 10^3/uL (1.8-7.7) 10/15/23 19:35 Lymph # (Auto) 1.1 10^3/uL (0.8-4.8) 10/15/23 19:35 [place] # (Auto) 0.5 10^3/uL (0.2-0.9) 10/15/23 19:35 Eos # (Auto) 0.0 10^3/uL (0.0-0.8) 10/15/23 19:35 Baso # (Auto) 0.1 10^3/uL (0.0-0.1) 10/15/23 19:35 Nucleated RBC % (auto) 0 % 10/15/23 19:35 Nucleated RBCs # 0.0 /100WBC 10/15/23 19:35 Sodium 132 mmol/L (136-145) L 10/15/23 19:35 Potassium 4.1 mmol/L (3.5-5.1) 10/15/23 19:35 Chloride 98 mmol/L (98-107) 10/15/23 19:35 Carbon Dioxide 21 mmol/L (22-29) L 10/15/23 19:35 Anion Gap 17.1 (5-19) 10/15/23 19:35 BUN 17 mg/dL (8-23) 10/15/23 19:35 Creatinine 1.2 mg/dL (0.5-0.9) H 10/15/23 19:35 GFR Calculation 44.5 mL/min (90-130) L 10/15/23 19:35 Glucose 88 mg/dL (65-115) 10/15/23 19:35 Calculated Osmolality 275 mOsm/kg (285-295) L 10/15/23 19:35 Calcium 9.1 mg/dL (8.5-10.5) 10/15/23 19:35 Total Bilirubin 0.4 mg/dL (0.15-1.2) 10/15/23 19:35 AST 17 U/L (0-32) 10/15/23 19:35 ALT 11 U/L (0-33) 10/15/23 19:35 Alkaline Phosphatase 85 U/L (35-105) 10/15/23 19:35 C-Reactive Protein 26.5 mg/L (0.0-4.9) H 10/15/23 19:35 Total Protein 7.1 g/dL (6.6-8.7) 10/15/23 19:35 Albumin 3.9 g/dL (3.5-5.2) 10/15/23 19:35 Globulin 3.2 g/dL (1.3-4.6) 10/15/23 19:35 All radiology interpretation(s) finalized by discharge Discharge Plan Discharge Patient Disposition: Home Clinical Impression: Left leg swelling Condition: Stable Prescriptions: New cephalexin 500 mg capsule 500 mg PO TID 7 Days Qty: 21 0RF No Action atorvastatin 10 mg tablet 10 mg PO QDAY tramadol-acetaminophen [Ultracet] 37.5-325 mg tablet 1 tab PO BID PRN fluticasone propionate 50 mcg/actuation spray,suspension 1 spray INTRANASAL QDAY aspirin [Adult Aspirin Regimen] 81 mg tablet,delayed release (DR/EC) 81 mg PO QDAY gabapentin 600 mg tablet 600 mg PO TID pantoprazole 40 mg tablet,delayed release (DR/EC) 40 mg PO QDAY cetirizine [Allergy Relief (cetirizine)] 10 mg tablet 5 mg PO DAILY PRN diphenhydramine HCl [Benadryl] 25 mg capsule 25 mg PO TID PRN zinc 50 mg tablet 50 mg PO DAILY Qty: 30 0RF lysine [L-Lysine] 500 mg tablet 500 mg PO DAILY Qty: 30 3RF omeprazole 20 mg capsule,delayed release(DR/EC) 20 mg PO DAILY diclofenac sodium [Voltaren] 1 % gel 2 g topical QID Qty: 100 2RF Rx Instructions: apply to single elbow, wrist or hand; for hand includes palm/fingers/back of hand prednisone 5 mg tablet 5 mg PO QDAY Qty: 30 1RF sulfasalazine 500 mg tablet 0.5 g PO DAILY Qty: 30 3RF Rx Instructions: give with food (meal/snack) hydroxychloroquine 200 mg tablet 200 mg PO BID Qty: 60 3RF cholecalciferol (vitamin D3) 1,250 mcg (50,000 unit) capsule 50,000 unit PO .qweek Qty: 14 0RF meclizine 25 mg tablet 12.5 mg PO DAILY PRN (Reason: dizziness) Qty: 14 0RF mupirocin 2 % ointment 1 applic topical DAILY Qty: 22 0RF Discharge Orders: Discharge ED (Routine); Ordered 10/15/23 Ordered By: Memo Rios Referrals: Kendrick Lott DO [Primary Care Provider] - Discharge Diet: Advance as tolerated Discharge Activity: Resume usual activity Patient Instructions: Leg Edema (ED) Coding Level of Care Code ED Artist'S Representative for Magdalene Simon
[2023-10-15 19:43] LABS: Basophils # 0.1 10^3/uL (0.0-0.1); Eosinophils % 0.6 %; Hematocrit 39.9 % (36-47); Lymphocytes # 1.1 10^3/uL (0.8-4.8); Lymphocytes % 23.8 %; Mean Corpuscular HGB Conc 31.6 g/dL (30-55); Mean Corpuscular Hemoglobin 29.9 pg (27-33); Mean Corpuscular Volume 94.5 fl (85-98); Mean Platelet Volume 9.2 fL (7.4-10.4); Monocytes # 0.5 10^3/uL (0.2-0.9); Monocytes % 11.3 %; Neutrophils # 3.02 10^3/uL (1.8-7.7); Neutrophils % 62.9 %; Nucleated Red Blood Cells % 0 %; Platelet Count 234 10^3/cmm (157-399); Red Blood Count 4.22 10^6/uL (3.85-5.65); Red Cell Distribution Width 14.6 % (12.1-15.1)
[2023-10-15 20:00] VITALS: BP 127/80; PULSE 70; RESP 20; O2SAT 96
[2023-10-15 20:00] LABS: Alanine Aminotransferase 11 U/L (0-33); Albumin Level 3.9 g/dL (3.5-5.2); Alkaline Phosphatase 85 U/L (35-105); Anion Gap 17.1 (5-19); Aspartate Amino Transferase 17 U/L (0-32); Blood Urea Nitrogen 17 mg/dL (8-23); C Reactive Protein 26.5 mg/L (0.0-4.9); Calcium 9.1 mg/dL (8.5-10.5); Carbon Dioxide 21 mmol/L (22-29); Chloride 98 mmol/L (98-107); Globulin 3.2 g/dL (1.3-4.6); Glomerular Filtration Rate 44.5 mL/min (90-130); Glucose 88 mg/dL (65-115); Osmolality Calculated 275 mOsm/kg (285-295); Potassium 4.1 mmol/L (3.5-5.1); Sodium 132 mmol/L (136-145); Total Bilirubin 0.4 mg/dL (0.15-1.2); Total Protein 7.1 g/dL (6.6-8.7)
[2023-10-15 20:57] VITALS: BP 138/75; PULSE 72; RESP 18; O2SAT 97
== END 2023-10-15 20:58 | disposition home or self-care (01) ==
PROVIDERS: Emergency Provider Emergency Medicine; PCP Internal Medicine
DX: M79.89 Other specified soft tissue disorders (principal); Z79.82 Long term (current) use of aspirin
CPT/HCPCS: 36415; 80053; 85025; 86140; 93971; 99284

== ENCOUNTER → 2024-09-25 13:57 | Outpatient (BNVA) | payer MEDICARE, MEDICAID, SELFPAY | PROVIDERS: PCP Internal Medicine; Visit Provider Internal Medicine Rheumatology | DX: M05.79 Rheumatoid arthritis with rheumatoid factor of multiple sites without organ or systems involvement (principal); Z79.899 Other long term (current) drug therapy; Z22.322 Carrier or suspected carrier of Methicillin resistant Staphylococcus aureus; R03.0 Elevated blood-pressure reading, without diagnosis of hypertension; M79.7 Fibromyalgia | CPT/HCPCS: 99214 ==

== ENCOUNTER → 2025-08-11 13:21 | Outpatient (BNVA) | payer MEDICARE, MEDICAID, SELFPAY | PROVIDERS: PCP Internal Medicine; Visit Provider Internal Medicine Rheumatology | DX: M05.79 Rheumatoid arthritis with rheumatoid factor of multiple sites without organ or systems involvement (principal); Z79.899 Other long term (current) drug therapy; Z71.85 Encounter for immunization safety counseling; Z89.511 Acquired absence of right leg below knee; M79.7 Fibromyalgia | CPT/HCPCS: 99214 ==